=== PATIENT | male | born 1935 | race Caucasian/White ===

== ENCOUNTER 2018-03-17 08:00 | Emergency (ER) | payer BC ==
[~2018-03-17] VITALS: Ht 175.3 cm; Wt 72.6 kg
[2018-03-17] MEDS ORDERED: Zestril40 MG PO (08:28)
[2018-03-17] MEDS ORDERED: TAMS.4ER PO (08:28)
[2018-03-17] MEDS ORDERED: METF500C PO (08:28)
[2018-03-17] MEDS ORDERED: SIMV10 PO (08:28)
[2018-03-17] MEDS ORDERED: VERA240ER PO (08:28)
[2018-03-17] MEDS ORDERED: ALLO300 PO (08:29)
[2018-03-17] MEDS ORDERED: HYDCHL25 PO (08:29)
[2018-03-17 09:10] LABS: Source, Urine Clean Catch
[2018-03-17 09:13] LABS: Hemoglobin 12.6 g/dL (13.5-17.5); Mean Corpuscular HGB 30.4 pg (26.0-34.0); Mean Corpuscular HGB Conc 33.2 g/dL (31.5-36.5); Mean Corpuscular Volume 92 fL (80-100); Mean Platelet Volume 9.7 fL (9.1-12.4); Platelet Count 341 K/mm3 (150-400); RDW Coefficient Variation 12.5 % (11.7-14.2); Red Blood Cell Count 4.14 M/mm3 (4.30-5.90); White Blood Cell Count 22.75 K/mm3 (4.00-11.30)
[2018-03-17 09:22] LABS: Bilirubin, Urine Neg (Neg); Blood, Urine 5+ (Neg); Glucose Qualitative, Urine Neg (Neg); Ketones, Urine Neg (Neg); Leukocyte Esterase, Urine 3+ (Neg); Nitrite, Urine Neg (Neg); Protein, Urine 3+ (Neg); Urobilinogen, Urine NORM (Normal)
[2018-03-17 09:27] LABS: Color, Urine Yellow (P-Yellow)
[2018-03-17 09:28] LABS: Appearance, Urine Turbid (Clear)
[2018-03-17 09:29] LABS: Red Blood Cells, Urine TNTC /hpf (0-2); White Blood Cells, Urine TNTC /hpf (0-5)
[2018-03-17 09:33] LABS: Bacteria Mod /hpf; Squamous Epithelial Cells Not Seen /hpf (Few); Transitional Epithelial Cells Rare /hpf (0-Rare)
[2018-03-17 09:34] LABS: Alanine Aminotransfer (ALT/SGP 49 U/L (12-78); Albumin, Blood 3.1 g/dL (3.4-5.0); Albumin/Globulin Ratio 0.6 (0.8-1.8); Alk Phos 29 U/L (50-136); Anion Gap 9 mmol/L (6-16); Aspartate Aminotrans (AST/SGOT 25 U/L (12-37); Bilirubin, Total 0.5 mg/dL (0.1-1.0); Blood Urea Nitrogen 28 mg/dL (8-24); Bun/Creatinine Ratio 29.9 (12.0-20.0); CO2, Blood 25 mmol/L (21-32); Calcium, Blood 9.7 mg/dL (8.5-10.1); Chloride, Blood 101 mmol/L (98-108); Creatinine, Blood 0.94 mg/dL (0.60-1.20); Globulin, Blood 4.8 g/dL (2.2-4.0); Glomerular Filtration Rate >60 (60-); Glucose, Blood 173 mg/dL (70-99); Potassium, Blood 5.1 mmol/L (3.5-5.5); Sodium, Blood 135 mmol/L (136-145); Total Protein, Blood 7.9 g/dL (6.4-8.2)
[2018-03-17] MEDS ORDERED: Cipro500 MG PO (09:37)
[2018-03-17 10:04] LABS: BASOPHILS PERCENT MAN 0 % (0-2); EOSINOPHILS ABSOLUTE MAN 0.45 K/mm3 (0.00-0.68); EOSINOPHILS PERCENT MAN 2 % (0-6); LYMPHOCYTES % ATYPICAL MANUAL 15 % (0-0); LYMPHOCYTES ABSOLUTE MAN 13.42 K/mm3 (0.84-5.20); LYMPHOCYTES PERCENT MAN 44 % (21-46); MONOCYTES ABSOLUTE MAN 1.59 K/mm3 (0.16-1.47); MONOCYTES PERCENT MAN 7 % (4-13); NEUTROPHILS ABSOLUTE MAN 7.28 K/mm3 (1.96-9.15); SEG NEUTROPHILS PERCENT MAN 32 % (41-73); TOTAL CELLS COUNTED 100
== END 2018-03-17 09:58 | disposition home or self-care (01) ==
LOC: ER 08:00
PROVIDERS: Physician Assistant
DX: N39.0 Urinary tract infection, site not specified (principal)
CPT/HCPCS: 36415; 80053; 81001; 85025; 87086; 99283; G0103

== ENCOUNTER 2018-12-21 08:30 | Day surgery (SDC) | payer BC ==
[~2018-12-21] VITALS: Ht 175.3 cm; Wt 72.0 kg
[~2018-12-21 08:30] MED LIST: ALLERGY EYE DROP5 ML; ALLO300 PO; AMLO10 PO; Cipro500 MG PO; Coq-10100 MG PO; FINA5 PO; FISH OIL 1,0001 EAC1 PO; FLONASE ALLERG9.9 ML; HYDCHL25 PO; METF500C PO; SIMV10 PO; TAMS.4ER PO; VERA120ERB PO; VERA240ER PO; Zestril40 MG PO
== END 2018-12-21 11:40 | disposition home or self-care (01) ==
LOC: ORSCSDS 08:30
PROVIDERS: Ophthalmology
PROC: 08RJ3JZ Replacement of Right Lens with Synthetic Substitute, Percutaneous Approach (ICD-10-PCS; principal; 2018-12-21 10:00)
DX: H25.11 Age-related nuclear cataract, right eye (principal); H21.81 Floppy iris syndrome; I10 Essential (primary) hypertension; E11.9 Type 2 diabetes mellitus without complications; K21.9 Gastro-esophageal reflux disease without esophagitis; Z79.899 Other long term (current) drug therapy
CPT/HCPCS: 82947; J0360; J2250; J3010; J3301; J7120; V2632

== ENCOUNTER → 2019-08-22 | Outpatient (CLI) | payer BC ==
[~2019-08-22] MED LIST changes: +ACET325 PO; +ASCO500 PO; +Betamethasone D60 ML TOP; +FERSU300 PO; +MELA3 PO; +ONDA4ODT MM; +TRIDERM28.4 GM TOP; +Verapamil HCl240 M1 PO
[2019-08-22 11:42] LABS: Source, Urine Catheter
[2019-08-22 12:50] LABS: Bilirubin, Urine Neg (Neg); Blood, Urine 1+ (Neg); Glucose Qualitative, Urine Neg (Neg); Ketones, Urine Neg (Neg); Leukocyte Esterase, Urine 3+ (Neg); Nitrite, Urine Neg (Neg); Protein, Urine 1+ (Neg); Specific Gravity, Urine 1.015 (1.003-1.022); Urobilinogen, Urine NORM (Normal)
[2019-08-22 13:05] LABS: Color, Urine Yellow (P-Yellow)
[2019-08-22 13:06] LABS: Appearance, Urine Hazy (Clear)
[2019-08-22 13:08] LABS: Bacteria Many /hpf; Squamous Epithelial Cells Not Seen /hpf (Few); White Blood Cells, Urine 50-100 /hpf (0-5)
== END | disposition home or self-care (01) ==
LOC: LAB 11:41 → LAB SHORT 11:41
PROVIDERS: Internal Medicine Hematology & Oncology
DX: C91.10 Chronic lymphocytic leukemia of B-cell type not having achieved remission (principal)
CPT/HCPCS: 81001; 87086

== ENCOUNTER 2019-09-05 12:41 | Inpatient (IN) | payer MEDICARE, BC ==
[~2019-09-05] VITALS: Ht 175.3 cm; Wt 58.3 kg
[~2019-09-05 12:41] MED LIST changes: -ACET325 PO; -ASCO500 PO; -Betamethasone D60 ML TOP; -FERSU300 PO; -MELA3 PO; -ONDA4ODT MM; -TRIDERM28.4 GM TOP; -Verapamil HCl240 M1 PO
[2019-09-05 13:20] LABS: Calcium, Ionized (POC) 1.25 mmol/L (1.10-1.46); Chloride (POC) 107 mmol/L (98-108); Creatinine (POC) 4.3 mg/dL (0.8-1.3); Glucose (ISTAT POC) 120 mg/dL (70-99); Hemoglobin (POC) 9.9 g/dL (13.5-17.5); Potassium (POC) 6.9 mmol/L (3.5-5.5); Sodium (POC) 127 mmol/L (135-148); Total CO2 (POC) 14 mmol/L (21-32)
[2019-09-05 13:31] LABS: BASOPHILS ABSOLUTE AUTO 0.07 K/mm3 (0.00-0.23); BASOPHILS PERCENT AUTO 0 % (0-2); EOSINOPHILS ABSOLUTE AUTO 0.18 K/mm3 (0.00-0.68); EOSINOPHILS PERCENT AUTO 1 % (0-6); Hematocrit 29.2 % (37.0-53.0); Hemoglobin 9.1 g/dL (13.5-17.5); Mean Corpuscular HGB 28.1 pg (26.0-34.0); Mean Corpuscular HGB Conc 31.2 g/dL (31.5-36.5); Mean Corpuscular Volume 90 fL (80-100); Mean Platelet Volume 10.6 fL (9.1-12.4); Platelet Count 291 K/mm3 (150-400); Red Blood Cell Count 3.24 M/mm3 (4.30-5.90); White Blood Cell Count 25.53 K/mm3 (4.00-11.30)
[2019-09-05 13:33] LABS: IMMATURE GRAN PERCENT AUTO 0 % (0-1); LYMPHOCYTES ABSOLUTE AUTO 15.59 K/mm3 (0.84-5.20); LYMPHOCYTES PERCENT AUTO 61 % (21-46); MONOCYTES ABSOLUTE AUTO 2.05 K/mm3 (0.16-1.47); MONOCYTES PERCENT AUTO 8 % (4-13); NEUTROPHILS ABSOLUTE AUTO 7.54 K/mm3 (1.96-9.15); NEUTROPHILS PERCENT AUTO 30 % (41-73)
[2019-09-05 13:51] LABS: Troponin I <0.015 ng/mL (0.000-0.040)
[2019-09-05 13:54] LABS: Alanine Aminotransfer (ALT/SGP 20 U/L (12-78); Albumin/Globulin Ratio 0.8 (0.8-1.8); Alk Phos 34 U/L (50-136); Anion Gap 9 mmol/L (6-16); Aspartate Aminotrans (AST/SGOT 10 U/L (12-37); Bilirubin, Total 0.2 mg/dL (0.1-1.0); Blood Urea Nitrogen 102 mg/dL (8-24); Bun/Creatinine Ratio 28.8 (12.0-20.0); CO2, Blood 14 mmol/L (21-32); Calcium, Blood 8.7 mg/dL (8.5-10.1); Chloride, Blood 106 mmol/L (98-108); Creatinine, Blood 3.54 mg/dL (0.60-1.20); Glomerular Filtration Rate 18 (60-); Glucose, Blood 121 mg/dL (70-99); Potassium, Blood 6.8 mmol/L (3.5-5.5); Sodium, Blood 129 mmol/L (136-145)
[2019-09-05 13:56] LABS: BAND PERCENT MAN 1 % (0-8); BASOPHILS PERCENT MAN 0 % (0-2); EOSINOPHILS PERCENT MAN 0 % (0-6); LYMPHOCYTES ABSOLUTE MAN 16.08 K/mm3 (0.84-5.20); LYMPHOCYTES PERCENT MAN 63 % (21-46); MONOCYTES PERCENT MAN 0 % (4-13); NEUTROPHILS ABSOLUTE MAN 9.44 K/mm3 (1.96-9.15); SEG NEUTROPHILS PERCENT MAN 36 % (41-73); TOTAL CELLS COUNTED 100
[2019-09-05] MEDS ORDERED: Verapamil HCl240 M1 PO (15:03)
[2019-09-05] MEDS ORDERED: HYDCHL25 PO (15:03)
[2019-09-05] MEDS ORDERED: Betamethasone D60 ML TOP (15:04)
[2019-09-05] MEDS ORDERED: TRIDERM28.4 GM TOP (15:05)
[2019-09-05 16:06] LABS: Source, Urine Catheter
[2019-09-05 16:11] LABS: Bilirubin, Urine Neg (Neg); Blood, Urine 2+ (Neg); Glucose Qualitative, Urine Neg (Neg); Ketones, Urine Neg (Neg); Leukocyte Esterase, Urine Neg (Neg); Nitrite, Urine Neg (Neg); Protein, Urine Neg (Neg); Urobilinogen, Urine NORM (Normal)
[2019-09-05 16:18] LABS: Appearance, Urine Clear (Clear); Color, Urine Yellow (P-Yellow)
[2019-09-05 16:19] LABS: Bacteria Few /hpf; Squamous Epithelial Cells Not Seen /hpf (Few); White Blood Cells, Urine 0-2 /hpf (0-5)
[2019-09-05 17:11] LABS: Magnesium, Blood 1.5 mg/dL (1.6-2.4); Phosphorus, Blood 4.2 mg/dL (2.5-4.9); Uric Acid, Blood 4.9 mg/dL (3.5-7.2)
[2019-09-05 17:25] LABS: Calcium, Ionized (POC) 1.35 mmol/L (1.10-1.46); Chloride (POC) 110 mmol/L (98-108); Creatinine (POC) 3.7 mg/dL (0.8-1.3); Glucose (ISTAT POC) 70 mg/dL (70-99); Hemoglobin (POC) 7.5 g/dL (13.5-17.5); Sodium (POC) 131 mmol/L (135-148); Total CO2 (POC) 15 mmol/L (21-32)
--- NOTE | 2019-09-05 18:35 | NUR ---
PT TO ROOM FROM ER AT 181. REPORT FROM SATNAM RAE. PT A&OX 4. ANSWERS QUESTIONS APPROPRIATELY. PT STATES HE WAS TOLD TO COME TO ER AFTER ABNORMAL LABS. PT DENIES PAIN. 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 DENIES HX OF KIDNEY DISEASE. PT c HX OF CLL, DENIES PREVIOUS TREATMENTS. REPORTS 30# WEIGHT LOSS, FATIGUE X 1 MONTH. RECENTLY TREATED FOR PNEUMONIA s IMPROVEMENT IN SYMPTOMS. PT SELF-CATHS D/T PROSTATE ISSUES. ARRIVES c INDWELLING NAJERA, PATENT, DRAINING TO GRAVITY. 18G IV TO LEFT AC, INFUSING BICARB DRIP AT 100 ML/HR. PT AMBULATORY, STAND BY ASSIST. CALL LIGHT IN REACH. WILL CONTINUE TO MONITOR.
--- NOTE | 2019-09-05 19:00 | NUR ---
ASSUMED CARE ASSUMED CARE OF PATIENT. AWAKE AND ALERT. ORIENTED AND COOPERATIVE. REPOSITIONS SELF IN BED WITHOUT DIFFICULTY. DENIES C/O PAIN OR DISCOMFORT. MONITOR SHOWS ST, RATE 100-105. BP STABLE. RA SATS 98%. RESPIRATIONS EVEN AND UNLABORED. NAJERA PATENT AND DRAINING CLEAR YELLOW URINE. BICARB GTT INFUSING @ 100CC/HR PER ORDER. SEE SHIFT ASSESSMENT FOR FULL ASSESSMENT.
[2019-09-05 19:26] LABS: Bun/Creatinine Ratio 31.8 (12.0-20.0); Calcium, Blood 9.1 mg/dL (8.5-10.1); Creatinine, Blood 3.11 mg/dL (0.60-1.20)
[2019-09-05 20:12] LABS: Anion Gap 11 mmol/L (6-16); Blood Urea Nitrogen 98 mg/dL (8-24); Bun/Creatinine Ratio 27.5 (12.0-20.0); CO2, Blood 12 mmol/L (21-32); Calcium, Blood 8.8 mg/dL (8.5-10.1); Chloride, Blood 106 mmol/L (98-108); Creatinine, Blood 3.57 mg/dL (0.60-1.20); Glomerular Filtration Rate 17 (60-); Sodium, Blood 129 mmol/L (136-145)
[2019-09-06 02:37] LABS: Potassium, Blood 6.1 mmol/L (3.5-5.5)
[2019-09-06 02:38] LABS: Glucose, Blood 73 mg/dL (70-99)
[2019-09-06 04:15] LABS: BASOPHILS ABSOLUTE AUTO 0.05 K/mm3 (0.00-0.23); BASOPHILS PERCENT AUTO 0 % (0-2); EOSINOPHILS PERCENT AUTO 1 % (0-6); Hematocrit 27.4 % (37.0-53.0); Hemoglobin 8.9 g/dL (13.5-17.5); Mean Corpuscular HGB 27.1 pg (26.0-34.0); Mean Corpuscular HGB Conc 32.5 g/dL (31.5-36.5); Mean Platelet Volume 10.2 fL (9.1-12.4); Platelet Count 240 K/mm3 (150-400); RDW Coefficient Variation 16.4 % (11.7-14.2); RDW Standard Deviation 49.6 fL (35.1-46.3); Red Blood Cell Count 3.28 M/mm3 (4.30-5.90); White Blood Cell Count 20.21 K/mm3 (4.00-11.30)
[2019-09-06 04:16] LABS: IMMATURE GRAN ABSOLUTE AUTO 0.03 K/mm3 (0.00-0.10); IMMATURE GRAN PERCENT AUTO 0 % (0-1); LYMPHOCYTES ABSOLUTE AUTO 15.95 K/mm3 (0.84-5.20); LYMPHOCYTES PERCENT AUTO 79 % (21-46); MONOCYTES ABSOLUTE AUTO 0.86 K/mm3 (0.16-1.47); MONOCYTES PERCENT AUTO 4 % (4-13); Mean Corpuscular Volume 84 fL (80-100); NEUTROPHILS ABSOLUTE AUTO 3.12 K/mm3 (1.96-9.15); NEUTROPHILS PERCENT AUTO 16 % (41-73)
[2019-09-06 04:29] LABS: Alanine Aminotransfer (ALT/SGP 16 U/L (12-78); Albumin, Blood 2.7 g/dL (3.4-5.0); Albumin/Globulin Ratio 0.8 (0.8-1.8); Alk Phos 32 U/L (50-136); Anion Gap 6 mmol/L (6-16); Aspartate Aminotrans (AST/SGOT 7 U/L (12-37); Bilirubin, Direct <0.1 mg/dL (0.0-0.3); Bilirubin, Total 0.2 mg/dL (0.1-1.0); Blood Urea Nitrogen 75 mg/dL (8-24); Bun/Creatinine Ratio 36.2 (12.0-20.0); CO2, Blood 26 mmol/L (21-32); CPK Creatine Kinase 33 U/L (39-308); Calcium, Blood 9.2 mg/dL (8.5-10.1); Chloride, Blood 109 mmol/L (98-108); Creatinine, Blood 2.07 mg/dL (0.60-1.20); Globulin, Blood 3.5 g/dL (2.2-4.0); Glomerular Filtration Rate 33 (60-); Glucose, Blood 123 mg/dL (70-99); Magnesium, Blood 1.3 mg/dL (1.6-2.4); Phosphorus, Blood 3.3 mg/dL (2.5-4.9); Potassium, Blood 5.4 mmol/L (3.5-5.5); Total Protein, Blood 6.2 g/dL (6.4-8.2); Uric Acid, Blood 4.3 mg/dL (3.5-7.2)
[2019-09-06 04:31] LABS: Bilirubin, Indirect Unable to Calculate mg/dL (0.1-0.7)
[2019-09-06 04:32] LABS: International Normalized Ratio 1.07; Prothrombin Time Results 11.3 Sec (9.7-11.5)
[2019-09-06 04:37] LABS: Sodium, Blood 141 mmol/L (136-145)
--- NOTE | 2019-09-06 05:54 | NUR ---
SHIFT SUMMARY NO ACUTE CHANGES DURING NOC. SLEPT INTERMITTENTLY. REPOSITIONS SELF IN BED. DENIES C/O PAIN OR DISCOMFORT. BP STABLE T/O NOC. MONITOR SHOWS SR-ST, RATE 90-100s. AFEBRILE. REMAINS ON RA WITH O2 SATS 98%. RESPIRATIONS EVEN AND UNLABORED. BICARB GTT INFUSING @ 100CC/HR PER ORDER. NAJERA PATENT AND DRAINING LARGE AMOUNTS OF CLEAR YELLOW URINE. WILL REPORT TO DAY SHIFT RN WHEN AVAILABLE.
--- NOTE | 2019-09-06 07:30 | NUR ---
BEGINNING OF SHIFT Assumed care at 0700. Bedside report received from Ashleigh RAE. Pt on room air. SpO2 90% or greater. Sinus tachycardia per monitor. Pt alert and oriented. No family in room at this time. Jonas catheter in place for strict measurement of fluid intake and output. IV fluids changed per orders. Bed in lowest position. Call light in reach. Pt denies need at this time.
--- NOTE | 2019-09-06 15:31 | NUR ---
DR GOYAL IN TO SEE PT Plan of care discussed. Discussed labs and vitals. Pt okay to be medical floor status with telemetry per Dr Goyal.
--- NOTE | 2019-09-06 16:33 | NUR ---
Spiritual Care inital note: I met with Tone and his marco , Leslie at bedside. 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 Both report a strong medical knowledge. Tone tells me that this is his first time to be hospitalized. He has taken good care of himself and is proud of this accomplishment. Both fully expect him to recover completely. Tone sees no need to be anything other than Full Code. Neither are particularly latter-day, but Leslie became tearful during my prayer. She thanked me for this, as apparently she hadn't cried for a while. Clearly she will benefit from continued gentle domestic violence counselor as I suspect there is a deep well of fear just below the surface. Regardless, neither wanted to engage in deep exploration of conerns/fears. [employer] will remain available.
--- NOTE | 2019-09-06 18:29 | NUR ---
SUMMARY No acute changes t/o shift. Pt medical floor status with telemetry. Pt remains alert and oriented. Pt remains on room air. Sinus rhtyhm per monitor. Pt calls appropriately for mobilization OOB. Standby assist. Bed in lowest position. Call light in reach. Will continue to closely monitor until care handoff and bedside report with oncoming RN.
--- NOTE | 2019-09-06 20:00 | NUR ---
ASSUMED CARE OF PT AT 1915. REPORT RECEIVED. PT PRESENTS IN BED. ALERT AND ORIENTED. PLEASANT AND COOPERATIVE WITH CARE AND ASSESSMENT. PT STATES THAT HE IS FEELING MUCH BETTER TODAY. WILL REVIEW CHART AND PLAN OF CARE FOR THIS PT.
--- NOTE | 2019-09-07 | NUR ---
PT HAS BEEN UP TO TOILET TO ATTEMPT BM THIS EVENING. WAS UNSUCESSFUL THOUGH WAS ABLE TO PASS FLATUS. PT DENIES ALL COMPLAINTS. ABLE TO MOVE ABOUT BE ON HIS OWN.
[2019-09-07 03:26] LABS: Hemoglobin 8.3 g/dL (13.5-17.5)
[2019-09-07 03:45] LABS: Albumin, Blood 2.4 g/dL (3.4-5.0); Anion Gap 4 mmol/L (6-16); Blood Urea Nitrogen 46 mg/dL (8-24); Bun/Creatinine Ratio 31.5 (12.0-20.0); CO2, Blood 27 mmol/L (21-32); Calcium, Blood 8.3 mg/dL (8.5-10.1); Chloride, Blood 109 mmol/L (98-108); Creatinine, Blood 1.46 mg/dL (0.60-1.20); Glomerular Filtration Rate 49 (60-); Glucose, Blood 89 mg/dL (70-99); Magnesium, Blood 1.6 mg/dL (1.6-2.4); Phosphorus, Blood 2.8 mg/dL (2.5-4.9); Sodium, Blood 140 mmol/L (136-145)
--- NOTE | 2019-09-07 06:04 | NUR ---
REPORT CALLED FOR TRANSFER TO ROOM 337. ALLOWED FOR QUESTIONS. PT ACCEPTING OF TRANSFER. HAS STATED THAT HE FEELS THAT HE IS REGAINING HIS APPETITE. PT LEAVES FOR ROOM 337 IN STABLE CONDITION.
--- NOTE | 2019-09-07 06:26 | NUR ---
0600 PT RECEIVED FROM ICU INTO ROOM 337 PER BED.
--- NOTE | 2019-09-07 07:41 | NUR ---
IVF IVF RATE CHANGED FROM 75/HR TO 50/HR
--- NOTE | 2019-09-07 18:38 | NUR ---
PT IS FEELING BETTER TODAY AND SAYS HIS APPETITE IS RETURNING. NO ACUTE CHANGES NOTED THIS SHIFT. POSSIBLE DISCHARGE TOMORROW. WILL CONTINUE TO MONITOR AND REPORT TO ONCOMING RN
--- NOTE | 2019-09-08 04:57 | NUR ---
SHIFT SUMMARY: 83 Y/O MALE RESTED COMFORTABLY ALL SHIFT, DENIES PAIN OR NAUSEA, NAJERA DRAINING CLEAR YELLOW FLUID, PT HOPING FOR POSSIBLE DISCHARGE HOME TODAY, TELEMETRY REFLECTS NSR WITH HEART RATE 84, BED LOW POSITION WITH CALL LIGHT AT SIDE.
[2019-09-08 05:40] LABS: Hematocrit 25.9 % (37.0-53.0); Hemoglobin 8.1 g/dL (13.5-17.5)
[2019-09-08 06:00] LABS: Albumin, Blood 2.4 g/dL (3.4-5.0); Anion Gap 6 mmol/L (6-16); Blood Urea Nitrogen 29 mg/dL (8-24); Bun/Creatinine Ratio 25.7 (12.0-20.0); CO2, Blood 26 mmol/L (21-32); Calcium, Blood 8.2 mg/dL (8.5-10.1); Chloride, Blood 109 mmol/L (98-108); Creatinine, Blood 1.13 mg/dL (0.60-1.20); Glomerular Filtration Rate >60 (60-); Glucose, Blood 90 mg/dL (70-99); Magnesium, Blood 1.3 mg/dL (1.6-2.4); Phosphorus, Blood 2.6 mg/dL (2.5-4.9); Potassium, Blood 4.6 mmol/L (3.5-5.5); Sodium, Blood 141 mmol/L (136-145)
[2019-09-08] MEDS ORDERED: ONDA4ODT MM (10:18)
[2019-09-08] MEDS ORDERED: MELA3 PO (10:18)
[2019-09-08] MEDS ORDERED: ACET325 PO (10:18)
[2019-09-08] MEDS ORDERED: ASCO500 PO (11:00)
[2019-09-08] MEDS ORDERED: FERSU300 PO (11:00)
--- NOTE | 2019-09-08 13:17 | NUR ---
DISCHARGE DISCHARGE INSTRUCTIONS, MEDCATIONS AND FOLLOW UP APPOINTMENTS REVIEWED WITH PT AND SPOUSE. QUESTIONS/CONCERNS ANSWERED. BOTH VERBALLY INDICATED UNDERSTANDING OF ALL INSTRUCTIONS RECEIVED. TELE REMOVED AND RETURNED TO PCU.
== END 2019-09-08 12:40 | disposition home health service (06) | DRG 683 ==
LOC: ER 12:41 → PCU 15:13 → ICUW 15:13 → MEDS 09-07 06:02
PROVIDERS: Emergency Medicine; Internal Medicine Nephrology; Nurse Practitioner Acute Care; ADMIT Family Medicine
DX: N17.9 Acute kidney failure, unspecified (principal); C82.80 Other types of follicular lymphoma, unspecified site; E87.2 Acidosis; E87.1 Hypo-osmolality and hyponatremia; N18.9 Chronic kidney disease, unspecified; I12.9 Hypertensive chronic kidney disease with stage 1 through stage 4 chronic kidney disease, or unspecified chronic kidney disease; E11.22 Type 2 diabetes mellitus with diabetic chronic kidney disease; M10.9 Gout, unspecified; E87.5 Hyperkalemia; N40.0 Benign prostatic hyperplasia without lower urinary tract symptoms; D64.9 Anemia, unspecified; E86.9 Volume depletion, unspecified; Z87.891 Personal history of nicotine dependence
CPT/HCPCS: 36415; 51702; 51798; 71046; 76770; 80047; 80048; 80053; 80061; 80069; 81001; 82248; 82550; 82947; 83036; 83735; 84100; 84132; 84300; 84484; 84550; 85014; 85018; 85025; 85610; 93005; 93010; 96365-59; 96367-59; 96375-59; 96376-59; 97110; 97116; 97162; 97530; 99285-25; J0610; J0881; J1644; J1815; J3475; J7030; J7070; J7799

== ENCOUNTER 2019-11-13 08:16 | Day surgery (SDC) | payer BC ==
[~2019-11-13 08:16] MED LIST changes: +ACET325 PO; +ASCO500 PO; +Betamethasone D60 ML TOP; +FERSU300 PO; +MELA3 PO; +ONDA4ODT MM; +TRIDERM28.4 GM TOP; +Verapamil HCl240 M1 PO
--- NOTE | 2019-11-13 12:05 | NUR ---
RADIOLOGY CALLED AND REPORTS THEY DISCHARGED THE PATINET POST F/U CHEST XRAY. DISCHARGE INSTRUCTIONS REVEIWED WITH BUD AGEE TO THEIR F/U XRAY. SERJIO REMAINS W/O DIFFICULTY T/O STEP DOWN RECOVERY CARE.
[2019-11-27 19:11] LABS: Performing Lab SYMBIODX; Result SEE PATHOTH RESULTS; Test Name TISSUE BLOCK
== END 2019-11-13 22:37 | disposition home or self-care (01) ==
LOC: CT 08:16
PROVIDERS: Internal Medicine Hematology & Oncology
DX: C34.12 Malignant neoplasm of upper lobe, left bronchus or lung (principal); C91.10 Chronic lymphocytic leukemia of B-cell type not having achieved remission; C61 Malignant neoplasm of prostate; E11.9 Type 2 diabetes mellitus without complications; E78.5 Hyperlipidemia, unspecified; M10.9 Gout, unspecified; I10 Essential (primary) hypertension; Z87.891 Personal history of nicotine dependence; Z79.51 Long term (current) use of inhaled steroids; Z79.84 Long term (current) use of oral hypoglycemic drugs; Z79.899 Other long term (current) drug therapy; Z91.048 Other nonmedicinal substance allergy status
CPT/HCPCS: 32405; 71045; 77012; 88305; 88341; 88342; 88360

== ENCOUNTER 2020-04-09 09:20 | Day surgery (SDC) | payer BC | END 2020-04-09 22:42 | disposition home or self-care (01) | LOC: CT 09:20 | DX: C79.51 Secondary malignant neoplasm of bone (principal); C34.12 Malignant neoplasm of upper lobe, left bronchus or lung; C91.10 Chronic lymphocytic leukemia of B-cell type not having achieved remission; E11.9 Type 2 diabetes mellitus without complications; E78.5 Hyperlipidemia, unspecified; I10 Essential (primary) hypertension; M10.9 Gout, unspecified; Z87.891 Personal history of nicotine dependence; Z79.899 Other long term (current) drug therapy; Z79.84 Long term (current) use of oral hypoglycemic drugs | CPT/HCPCS: 20225; 77012; 88305; 88341; 88342 ==

== ENCOUNTER 2020-05-14 05:37 | Inpatient (IN) | payer MEDICARE, BC ==
[~2020-05-14] VITALS: Ht 175.3 cm; Wt 64.0 kg
[2020-05-14 06:40] LABS: Calcium, Ionized (POC) 1.07 mmol/L (1.10-1.46); Chloride (POC) 95 mmol/L (98-108); Creatinine (POC) 1.4 mg/dL (0.8-1.3); Glucose (ISTAT POC) 317 mg/dL (70-99); Hemoglobin (POC) 8.5 g/dL (13.5-17.5); Potassium (POC) 6.2 mmol/L (3.5-5.5); Sodium (POC) 119 mmol/L (135-148); Total CO2 (POC) 14 mmol/L (21-32)
[2020-05-14 06:49] LABS: Mean Corpuscular HGB 29.6 pg (26.0-34.0); Mean Corpuscular HGB Conc 30.8 g/dL (31.5-36.5); Mean Corpuscular Volume 96 fL (80-100); Mean Platelet Volume 9.5 fL (9.1-12.4); NRBC ABSOLUTE 0.12 K/mm3 (0.00-0.02); NRBC Auto 0.3 /100 WBC (0.0-0.2); Platelet Count 468 K/mm3 (150-400); RDW Coefficient Variation 14.2 % (11.7-14.2); RDW Standard Deviation 49.4 fL (35.1-46.3); White Blood Cell Count 45.99 K/mm3 (4.00-11.30)
[2020-05-14 07:00] LABS: PCO2 Arterial 54.7 mmHg (35-45); PO2 Arterial 83.4 mmHg (80-100); pH Blood Arterial 7.01 (7.35-7.45)
[2020-05-14 07:13] LABS: Troponin I <0.015 ng/mL (0.000-0.040)
[2020-05-14 07:22] LABS: Alanine Aminotransfer (ALT/SGP 245 U/L (12-78); Albumin, Blood 1.7 g/dL (3.4-5.0); Albumin/Globulin Ratio 0.5 (0.8-1.8); Alk Phos 65 U/L (50-136); Anion Gap 18 mmol/L (6-16); Aspartate Aminotrans (AST/SGOT 307 U/L (12-37); BAND PERCENT MAN 2 % (0-8); BASOPHILS ABSOLUTE MAN 0.45 K/mm3 (0.00-0.23); BASOPHILS PERCENT MAN 1 % (0-2); Bilirubin, Total 0.3 mg/dL (0.1-1.0); Blood Urea Nitrogen 33 mg/dL (8-24); Bun/Creatinine Ratio 26.2 (12.0-20.0); CO2, Blood 12 mmol/L (21-32); Calcium, Blood 7.5 mg/dL (8.5-10.1); Chloride, Blood 94 mmol/L (98-108); Creatinine, Blood 1.26 mg/dL (0.60-1.20); EOSINOPHILS PERCENT MAN 0 % (0-6); Globulin, Blood 3.7 g/dL (2.2-4.0); Glomerular Filtration Rate 58 (60-); Glucose, Blood 316 mg/dL (70-99); LYMPHOCYTES ABSOLUTE MAN 23.91 K/mm3 (0.84-5.20); LYMPHOCYTES PERCENT MAN 52 % (21-46); METAMYELOCYTE ABSOLUTE MAN 1.37 K/mm3 (0.00-0.00); METAMYELOCYTE PERCENT MAN 3 % (0-0); MONOCYTES ABSOLUTE MAN 0.91 K/mm3 (0.16-1.47); MONOCYTES PERCENT MAN 2 % (4-13); MYELOCYTE ABSOLUTE MAN 0.91 K/mm3 (0.00-0.00); MYELOCYTE PERCENT MAN 2 % (0-0); NEUTROPHILS ABSOLUTE MAN 18.39 K/mm3 (1.96-9.15); Potassium, Blood 6.3 mmol/L (3.5-5.5); SEG NEUTROPHILS PERCENT MAN 38 % (41-73); Sodium, Blood 124 mmol/L (136-145); TOTAL CELLS COUNTED 100; Total Protein, Blood 5.4 g/dL (6.4-8.2)
--- NOTE | 2020-05-14 09:31 | NUR ---
ADMIT NOTE- PT ADMITTED TO ICU FROM ER ON [facility]. UNRESPONSIVE, NO RESPONSE TO VERBAL STIMULUS OR PAINFUL STIMULUS. NO MOVEMENT, NO COUGH, NO GAG. PUPILS UNEQUAL, RIGHT MISSHAPEN, REACTIVE. ORALLY INTUBATED, TOLERATING VENT, LUNGS WITH INSPIRATORY SQUEAK, DIMINISHED RIGHT BASE. APICAL IRREGULAR, RHYTHM SINUS WITH JUNCTIONAL BEATS, QUESTION P WAVES. SEE STRIP. NOW CHANGED TO JUNCTIONAL RHYTHM AT 62 BPM. SBP 90'S WITH LEVOPHED AT 22 MCG/MIN AND EPINEPHRINE DECREASED FROM 4 TO 2 MCG/MIN VIA LEFT FEMORAL CENTRAL LINE. LABS DRAWN. UO VIA NAJERA, URINE CLEAR YELLOW. HERE-UPDATED. FEET PALE, MOTTLED. PULSES PRESENT.
--- NOTE | 2020-05-14 10:05 | NUR ---
LABS DRAWN, HYPOTENSIVE IF MEDS HELD JUST BRIEFLY FOR LAB DRAW FROM CENTRAL LINE. BEDSIDE ECHO BEING DONE
[2020-05-14 10:39] LABS: Source, Urine Catheter
[2020-05-14 10:44] LABS: Albumin, Blood 1.4 g/dL (3.4-5.0); Anion Gap 16 mmol/L (6-16); Blood Urea Nitrogen 35 mg/dL (8-24); CO2, Blood 13 mmol/L (21-32); Calcium, Blood 7.9 mg/dL (8.5-10.1); Chloride, Blood 95 mmol/L (98-108); Glomerular Filtration Rate 51 (60-); Glucose, Blood 383 mg/dL (70-99); Phosphorus, Blood 6.7 mg/dL (2.5-4.9); Potassium, Blood 5.3 mmol/L (3.5-5.5); Sodium, Blood 124 mmol/L (136-145)
[2020-05-14 11:03] LABS: Appearance, Urine Hazy (Clear); Bilirubin, Urine Neg (Neg); Blood, Urine Neg (Neg); Color, Urine Yellow (P-Yellow); Glucose Qualitative, Urine Neg (Neg); Ketones, Urine Neg (Neg); Leukocyte Esterase, Urine 1+ (Neg); Nitrite, Urine Neg (Neg); Protein, Urine Trace (Neg); Specific Gravity, Urine 1.005 (1.003-1.022); Urobilinogen, Urine NORM (Normal)
[2020-05-14 11:04] LABS: Bacteria Few /hpf; Red Blood Cells, Urine Not Seen /hpf (0-2); Squamous Epithelial Cells Few /hpf (Few)
[2020-05-14 11:13] LABS: PCO2 Arterial 55.2 mmHg (35-45); PO2 Arterial 86.6 mmHg (80-100)
[2020-05-14 11:46] LABS: Adenovirus Not Detected (NOT DETECT); Coronavirus 229E Not Detected (NOT DETECT); Coronavirus HKU1 Not Detected (NOT DETECT); Coronavirus NL63 Not Detected (NOT DETECT); Coronavirus OC43 Not Detected (NOT DETECT); Human Metapneumovirus Not Detected (NOT DETECT); Human Rhinovirus/Enterovirus Not Detected (NOT DETECT)
[2020-05-14 11:47] LABS: Bordetella pertussis Not Detected (NOT DETECT); Chlamydophila pneumoniae Not Detected (NOT DETECT); Influenza A/2009-H1 Not Detected (NOT DETECT); Influenza A/H1 Not Detected (NOT DETECT); Influenza A/H3 Not Detected (NOT DETECT); Influenza B Not Detected (NOT DETECT); Mycoplasma pneumoniae Not Detected (NOT DETECT); Parainfluenza Virus 1 Not Detected (NOT DETECT); Parainfluenza Virus 2 Not Detected (NOT DETECT); Parainfluenza Virus 3 Not Detected (NOT DETECT); Parainfluenza Virus 4 Not Detected (NOT DETECT); Respiratory Syncytial Virus Not Detected (NOT DETECT)
--- NOTE | 2020-05-14 13:00 | NUR ---
DR. ALCANTAR HERE-UPDATED WITH VS, UO, LABS. DR. ALCANTAR AT BEDSIDE, DISCUSSED PLAN WITH PT'S . DNR STATUS NOW. ABLE TO TITRATE OFF EPINEPHRINE WITH SBP > 90'S.
[2020-05-14 13:39] LABS: Percent Saturation 43.9 % (20.0-50.0)
[2020-05-14 15:30] LABS: PCO2 Arterial 47.1 mmHg (35-45); PO2 Arterial 97.6 mmHg (80-100)
--- NOTE | 2020-05-14 16:00 | NUR ---
BEDSIDE ULTRASOUND DONE, NAJERA BALLOON IN POSITION. URINE OUTPUT MINIMAL, CONTINUE TO MONTIOR. DR. ALCANTAR HERE-BOLUS ORDERED.
--- NOTE | 2020-05-14 16:19 | NUR ---
NAJERA REPLACED D/T MALPOSITIONING ON CT SCAN WITHOUT DIFFICULTY. 45 CC BLOODY URINE DRAINED. ABG, VS REVIEWED WITH DR. ALCANTAR. FLUID BOLUS STARTED. ALBUMIN INFUSING. BP STABLE WITH LEVOPHED AT 16 MCG/MIN. PT FLUTTERS EYELIDS AT TIMES, SMALL MOVEMENT NONREPORODUCABLE SHOULDERS AND LEFT HAND. WILL MONITOR. LABS DRAWN.
[2020-05-14 16:29] LABS: Albumin, Blood 2.4 g/dL (3.4-5.0); Anion Gap 14 mmol/L (6-16); Blood Urea Nitrogen 34 mg/dL (8-24); Bun/Creatinine Ratio 22.1 (12.0-20.0); CO2, Blood 17 mmol/L (21-32); Calcium, Blood 7.1 mg/dL (8.5-10.1); Chloride, Blood 91 mmol/L (98-108); Creatinine, Blood 1.54 mg/dL (0.60-1.20); Glomerular Filtration Rate 46 (60-); Glucose, Blood 496 mg/dL (70-99); Phosphorus, Blood 5.5 mg/dL (2.5-4.9); Potassium, Blood 5.2 mmol/L (3.5-5.5); Sodium, Blood 122 mmol/L (136-145)
--- NOTE | 2020-05-14 16:45 | NUR ---
LABS REVIEWED WITH DR. ALCANTAR. PT APPEARED TO OPEN EYES TO NAME, SOME MOVEMENT LEFT HAND. BILATERAL WRIST RESTRAINTS ON. EXPLAINED PLAN OF CARE.
--- NOTE | 2020-05-14 17:56 | NUR ---
Initial spiritual care note: Pt was intubated and non-responsive. I met with spouse, Jolene, at bedside. She was tearful and open to my visit. We met when pt was here in January. Jolene spoke about pt's recent cancer dx. "he has tumors on his spine." They were supposed to have appt with oncologist today to go over biopsy findings and POC. Jolene explained in detail how Tone has declined this past month. As a usually active, vital man, she says that losing his functions has been most difficult for him. Jolene's family lives out of state and she does not appear to have much emotional support locally, She does have a dtr local, but "she is bi-polar with advanced Lupus." Jolene admitted to me that Tone would not want to go on living with "the way things were going." I provided theraputic listening and emotional affirmation to good effect. We have an easy rapport. I prayed with her and offered gentle college counselor. Jolene expressed fear, sadness, and hopelessness. I encouraged allowing one of her siblings to come be with her now. Physician arrived and visit concluded. I will continue to provide emotional and spiritual support in coming days.
--- NOTE | 2020-05-14 18:15 | NUR ---
PT'S CALLED-UPDATED. PT ABLE TO OPEN EYES TO NAME, ABLE TO NOD HEAD APPROPRIATELY TO BRIEF QUESTIONS, ABLE TO FOLLOW DIRECTIONS TO MOVE HANDS AND TOES WEAKLY. EXPLAINED PLAN OF CARE. DENIES PAIN. EYES CLOSED, RESPIRATIONS EVEN, UNLABORED WHEN UNDISTURBED. TOLERATING VENT. JUNCTIONAL RHYTHM. LEVOPHED DECREASED TO 10 MCG/MIN AND VASOPRESSIN INFUSING. NS TKO, BICARB INCREASED TO 300 CC/HR. BLOOD SUGAR ELEVATED-UPDATE GIVEN TO DR. ALCANTAR. SCALE CHANGED, KEEP AT Q 6 HOURS. BLOODY URINE-STILL SCANT AMOUNT, OK FOR HEPARIN SQ PER DR. ALCANTAR. LABS IN AM. OGT WITH 25 BROWNISH SLIGHTLY REDDISH DRAINAGE. ABDOMEN SOFT. BOTH ARMS AND LEGS WITH 1+EDEMA. ALBUMIN COMPLETED. WRIST RESTRAINTS ON FOR SAFETY
--- NOTE | 2020-05-14 19:00 | NUR ---
ASSUMED CARE ASSUMED CARE OF PATIENT. REMAINS INTUBATED- AC 18, TV 450, PEEP 7, FIO2 65%. PT OPENS EYES TO VERBAL STIMULI. FOLLOWS SIMPLE COMMANDS. NODS HEAD "YES/NO" APPROPRIATELY. DENIES C/O PAIN. MOVES ALL EXTREMITIES TO COMMAND. BILATERAL SOFT WRIST RESTRAINTS IN PLACE TO PREVENT SELF-EXTUBATION. MONITOR SHOWS ACCELERATED JUNCTIONAL RHYTHM, RATE 60-70s. BP STABLE WITH LEVOPHED AT 10MCG/MIN. VASOPRESSIN INFUSING @ 0.04UNITS/MIN. D5 WITH 150mEq BICARB HCO3 INFUSING AT 300CC/HR PER ORDER. OG TO LIS WITH SMALL AMOUNT BROWN DRAINAGE. NAJERA PATENT, BUT WITH SMALL AMOUNT OF BLOODY URINE NOTED. ALSO NOTED BLOODY DRAINAGE FROM MEATUS. PAS TO BLE. LEFT FEMORAL CENTRAL LINE NOTED. SEE SHIFT ASSESSMENT FOR FULL ASSESSMENT.
--- NOTE | 2020-05-14 19:50 | NUR ---
DECREASED SATS/CALL TO MD O2 SATS LOW TO MID-80s DESPITE INCREASE IN FIO2 TO 70%. SUCTIONED SMALL AMOUNT OF BLOODY SPUTUM. REPOSITIONED PT TO BACK. DR. ALCANTAR NOTIFIED- NEW ORDER RECEIVED TO TITRATE PEEP UP TO 12 IF NEEDED. ALSO NOTIFIED MD OF CONTINUED BLOOD IN URINE AND DECREASED URINE OUTPUT. NO NEW ORDERS IN THAT REGARD.
--- NOTE | 2020-05-14 20:45 | NUR ---
CALL TO MD CALL TO DR. ALCANTAR TO DISCUSS CONTINUED HYPERGLYCEMIA, HYPONATREMIA, AND BICARB GTT WITH D5W. NEW ORDER RECEIVED TO GIVE ONE TIME DOSE OF LASIX 40MG IV.
--- NOTE | 2020-05-15 03:37 | NUR ---
VENT PT WITH ASYNCHRONUS RESPIRATIONS AND BREATH STACKING NOTED. RT AT BEDSIDE- CHANGED TO SPONTANEOUS VENTILATION WITH PS OF 8, FIO2 60% AT THIS TIME. PT SEEMS MORE COMFORTABLE ON SPONTANEOUS VENTILATION.
[2020-05-15 03:53] LABS: BASOPHILS ABSOLUTE AUTO 0.06 K/mm3 (0.00-0.23); BASOPHILS PERCENT AUTO 0 % (0-2); EOSINOPHILS ABSOLUTE AUTO 0.01 K/mm3 (0.00-0.68); EOSINOPHILS PERCENT AUTO 0 % (0-6); Hematocrit 20.6 % (37.0-53.0); Hemoglobin 6.6 g/dL (13.5-17.5); Mean Corpuscular HGB 29.5 pg (26.0-34.0); Mean Platelet Volume 9.8 fL (9.1-12.4); NRBC ABSOLUTE 0.17 K/mm3 (0.00-0.02); NRBC Auto 0.6 /100 WBC (0.0-0.2); Platelet Count 282 K/mm3 (150-400); RDW Coefficient Variation 13.9 % (11.7-14.2); RDW Standard Deviation 46.2 fL (35.1-46.3); Red Blood Cell Count 2.24 M/mm3 (4.30-5.90); White Blood Cell Count 29.11 K/mm3 (4.00-11.30)
[2020-05-15 04:19] LABS: IMMATURE GRAN ABSOLUTE AUTO 1.01 K/mm3 (0.00-0.10); IMMATURE GRAN PERCENT AUTO 4 % (0-1); LYMPHOCYTES ABSOLUTE AUTO 8.29 K/mm3 (0.84-5.20); LYMPHOCYTES PERCENT AUTO 29 % (21-46); MONOCYTES ABSOLUTE AUTO 1.29 K/mm3 (0.16-1.47); MONOCYTES PERCENT AUTO 4 % (4-13); Mean Corpuscular Volume 92 fL (80-100); NEUTROPHILS ABSOLUTE AUTO 18.45 K/mm3 (1.96-9.15); NEUTROPHILS PERCENT AUTO 63 % (41-73)
[2020-05-15 04:22] LABS: Albumin, Blood 2.2 g/dL (3.4-5.0); Anion Gap 14 mmol/L (6-16); Blood Urea Nitrogen 38 mg/dL (8-24); Bun/Creatinine Ratio 19.1 (12.0-20.0); CO2, Blood 24 mmol/L (21-32); Calcium, Blood 6.3 mg/dL (8.5-10.1); Chloride, Blood 83 mmol/L (98-108); Creatinine, Blood 1.99 mg/dL (0.60-1.20); Glomerular Filtration Rate 34 (60-); Glucose, Blood 411 mg/dL (70-99); Phosphorus, Blood 5.7 mg/dL (2.5-4.9); Potassium, Blood 5.1 mmol/L (3.5-5.5); Sodium, Blood 121 mmol/L (136-145); Troponin I 0.026 ng/mL (0.000-0.040)
[2020-05-15 04:31] LABS: BAND PERCENT MAN 2 % (0-8); BASOPHILS PERCENT MAN 0 % (0-2); EOSINOPHILS PERCENT MAN 0 % (0-6); LYMPHOCYTES ABSOLUTE MAN 10.77 K/mm3 (0.84-5.20); LYMPHOCYTES PERCENT MAN 37 % (21-46); METAMYELOCYTE ABSOLUTE MAN 0.58 K/mm3 (0.00-0.00); METAMYELOCYTE PERCENT MAN 2 % (0-0); MONOCYTES ABSOLUTE MAN 0.29 K/mm3 (0.16-1.47); MONOCYTES PERCENT MAN 1 % (4-13); MYELOCYTE ABSOLUTE MAN 0.58 K/mm3 (0.00-0.00); MYELOCYTE PERCENT MAN 2 % (0-0); NEUTROPHILS ABSOLUTE MAN 16.88 K/mm3 (1.96-9.15); SEG NEUTROPHILS PERCENT MAN 56 % (41-73); TOTAL CELLS COUNTED 100
[2020-05-15 04:49] LABS: PCO2 Arterial 39.1 mmHg (35-45); PO2 Arterial 50.8 mmHg (80-100); pH Blood Arterial 7.39 (7.35-7.45)
[2020-05-15 05:46] LABS: pH Blood Arterial 6.96 (7.35-7.45)
--- NOTE | 2020-05-15 05:50 | NUR ---
CALL TO MD/UPDATE DR. ALCANTAR UPDATED ON CONDITION AND NOTIFIED OF ABNORMAL LABS, CONTINUED DECREASE URINE OUTPUT, CONTINUED BLOOD IN URINE, DECREASED H+H, AND CHANGE IN VENT SETTINGS. NEW ORDERS RECEIVED AT THIS TIME.
--- NOTE | 2020-05-15 06:49 | NUR ---
SHIFT SUMMARY PT REMAINS INTUBATED- CHANGED FROM AC VENTILATION TO SPONTANEOUS WITH PS 8, PEEP 8 AT APPROXIMATELY 0330 D/T ASYNCHRONY WITH VENTILATOR. APPEARS TO BE MORE COMFORTABLE ON SPONTANEOUS. SEDATED WITH PROPOFOL BETWEEN 10-35MCG/KG/MIN- NOW AT 10MCG/KG/MIN. PT FOLLOWS SIMPLE COMMANDS AND NODS HEAD APPROPRIATELY. DENIES PAIN. LEVOPHED BETWEEN 8-11MCG/MIN TO KEEP MAP >65. NOW INFUSING AT 9MCG/MIN. VASOPRESSIN CONTINUES PER ORDER. BICARB GTT DECREASED TO 100CC/HR THIS AM. OG TO LIS WITH SCANT BROWN DRAINAGE. NAJERA PATENT AND DRAINING BLOODY URINE. NAJERA FLUSHED X 3 DURING SHIFT. SCDs TO BLE. LEFT FEMORAL CL PATENT, SITE CLEAR. PT TO RECEIVE 1UNIT PRBC THIS AM. WILL REPORT TO DAY SHIFT RN WHEN AVAILABLE.
--- NOTE | 2020-05-15 10:49 | NUR ---
CARE ASSUMED ASSESSMENT COMPLETED, PT INTUBATED, VENT ON SPONTANEOUS WITH PS 8, PEEP 8, FIO2 75%. FIO2 INCREASED TO 80% AFTER DESAT WITH REPOSITIONING, TOLERATING WELL. LS CLEAR ON R, COARSE ON L, RR 20-22, Vt 600'S, SPO2 LOW 90'S. HR 60'S, ACCELERATED JUNCTIONAL, ABD DISTENDED WITH HYPOACTIVE BT. NAJERA IN PLACE, URINE BLOODY WITH SMALL CLOTS PRESENT, PATENT AND DRAINING, BLOOD CONTINUES TO OOZE FROM MEATUS. DR. ALCANTAR IN TO SEE PATIENT, NEW ORDERS. PRBC'S INFUSING PER ORDERS, LASIX AT 5MG/HR AND TITRATING TO ACHIEVE URINE OUTPUT >150ML/HR, PROPOFOL INCREASED TO 20MCG FOR COMFORT, TITRATING LEVO DOWN, VASO AT 0.04, WILL STOP ABLE. AT BEDSIDE TO VISIT, UPDATED ON PT CONDITION. WILL INITIATE INSULIN GTT PER ORDERS.
--- NOTE | 2020-05-15 11:07 | NUR ---
UPDATE CBG AT 1100 IS 166, INSULIN GTT HELD, WILL RESUME REGULAR INSULIN SS, MEDIUM DOSE PER DR. ALCANTAR.
--- NOTE | 2020-05-15 12:21 | NUR ---
UPDATE PALLIATVE AND PASTORAL CARE AT BEDSIDE, SPOKE WITH PT AND ABOUT TREATMENT OPTIONS AND COMFORT MEASURES. DR. BARDALES AT BEDSIDE, REVIEWED TELE, SMALL P WAVES PRESENT, PT IN SINUS RHYTHM 60'S. CARDIOLOGY SIGNING OFF. PT REPOSITIONED, MEPILEX PLACED TO REDDENED COCCYX, SKIN INTACT, BLANCHEABLE. LASIX GTT INCREASED TO 10MG FOR 1 HOUR URINE OUTPUT OF 57ML. LEVO DECREASED TO 3MCG. REMAINS AT BEDSIDE.
--- NOTE | 2020-05-15 12:51 | NUR ---
PAL CARE INITIAL VISIT: Case conferenced with hospitalist, SANTOS and Regrader following pt prior to my visit. , María Elena, is at the bedside. Tone is maintaining eye contact, blinking, trying to nod and squeezing her hand and mine consistently in response to request or attempts to clarify orientation. He can consistently squeeze my hand for yes and be absent of squeeze for no. When asked if he is hurting, his answer by no squeeze is no. Both Regrader and I encouraged to explain to Tone the events of yesterday and explain to him why he is here in the hospital and on a vent now. Also, encouraged any conversation she felt she needed to have. Pt had a complete cardiopulmonary arrest in the ER yesterday, see 's notes for complete hx. He has hx of prostate CA, more recent Lung CA and underwent radiation for that this winter. Pt had a spinal biopsy due to increased pain and s/s that has found to be metastatic disease. Currently, pt has acute renal failure and multiple acute comorbidities in addition to cancers. Pt is a DNR. Per , she and have discussed attempting to give pt time/opportunity to be extubated in order to have time with family. [facility] will follow closely. and I are familiar with each other. 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 She has our card to contact us with any questions or desire to discuss goals of care, options for care going forward and symptom management. I described nonverbal indicators of pain, anxiety, agitation & distress for her to recognize and report if noted. Currently pt is clearly happy to have his at bedside. I am not noting nonverbal indicators of pain, anxiety or agitation/distress at this time. grateful that pt has become responsive and communicative. No further intervention at this time as I wanted to allow pt and to have some time. [facility] care to plan daily visits as schedule allows.
[2020-05-15] MEDS ORDERED: Percocet 5-3251 EACH PO (13:46)
--- NOTE | 2020-05-15 17:28 | NUR ---
Routine spiritual care note: , Jolene, was excited that Tone is responding to her today. She sees this as an answered prayer. Tone opened eyes and squeezed my hand when I spoke to him. Provided prayer at bedside. Jolene appears realistic and says she understands this may be God's way of allowing time for family to say goodbye. I will continue to suport pt and family.
--- NOTE | 2020-05-15 19:14 | NUR ---
END OF SHIFT PT RESTED WELL THIS AFTERNOON WITH PROPOFOL AT 20MCG, VSS, LEVO AT 1MCG, VASO REMAINS OFF. PT REMAINS RESPONSIVE, FOLLOWS SIMPLE COMMANDS. SEDATION NEVER SHUT COMPLETELY OFF THIS SHIFT PT WAS ALERT AND RESPONSIVE THIS MORNING ON 10MCG PROPOFOL. NEURO STATUS UNCHANGED THIS SHIFT. LS REMAIN COARSE T/O, SPO2 90-93% ON FIO2 75%, VENT REMAINS SPONT MODE PS 8, PEEP 8, PT TOLERATING WELL. HR 60'S-70 SINUS, NO BRADYCARDIA THIS SHIFT. ABD REMAINS DISTENDED AND FIRM, BT PRESENT, NO BM THIS SHIFT. NAJERA DRAINING PINK URINE AT THIS TIME WITH SMALL RED SEDIMENT, URINE HAS LIGHTENED CONSIDERABLY THIS SHIFT, OUTPUT 577ML WITH LASIX GTT AT 35MG/HR AT THIS TIME, NO BLEEDING FROM MEATUS THIS AFTERNOON. EDEMA REMAINS UNCHANGED FROM THIS MORNING, PT REPOSITIONED FREQUENTLY THIS SHIFT AND EXTREMS ELEVATED. ZOSYN AND D5 WITH BICARB CONTINUED PER ORDERS. SODIUM LEVEL LOW, WILL RECHECK AT [address] ALCANTAR. CONSULTED WITH DR. ALCANTAR REGARDING HGB AND LASIX WITH RENAL DYSFUNCTION, WILL RECHECK LABS IN AM AND CONTINUE LASIX UNTIL TOMORROW THEN REASSESS. PALLIATIVE CARE AND PASTORAL CARE IN TO SPEAK WITH PT'S TODAY AT LENGTH. REPORT TO ONCOMING SHIFT.
--- NOTE | 2020-05-15 20:00 | NUR ---
INITAL SHIFT ASSESSMENT PT IS INTUBATED AND SEDATED AT THIS TIME. PROPOFOL GTT AT 20MCG. WILL CON'T TO TITRATE NEEDED T/O SHIFT. PT DOES RESPOND TO TOUCH STIMULI AND ADJUSTING PILLOWS. HE FURROWS HIS BROW WITH THIS AND WILL SHAKE HIS HEAD YES OR NO TO SIMPLE QUESTIONS. HE IS ORIENTED TO HIMSELF AT THIS TIME. VENT IS ON SPONTANEOUS SETTINGS SEE RT NOTES. PT IS TOLERATING THIS WELL. BILATERAL SOFT WRIST RESTRAINTS IN PLACE WITH NO ISSUES WITH SKIN. ALL EXTREMITIES ELVATED AT THIS TIME ON PILLOWS. VITALS ARE STABLE. LEVOPHED GTT IS RUNNING AT 1MCG PLACING THIS ON STANDBY R/T MAP OVER 60. WILL RE-START IF NEEDED. SEE FLOW SHEET FOR ADJUSTMENTS TO THE LASIX GTT THAT IS CURRENTLY RUNNING AT 35ML. BLOODY URINE NOTED IN THE NAJERA AT THIS TIME. PT DOES HAVE A SWOLLEN PENIS AND SCROTUM NOTED. CENTRAL LINE TO LEFT GROIN IS PATENT WITH CDI DRESSING. NO SWELLING NOTED OR BRUISING. OG TUBE IN PLACE TO LOW INT SUCTION AND RETURN APPEARS TO BE BROWN/GREEN BILE, BUT VERY MINIMAL. ORAL CARE WAS DONE AT THIS TIME WELL. PT TOLERATED THIS WELL. OVERALL PT IS STABLE AT THIS TIME. WILL CON'T TO MONITOR AND KEEP PT SAFE T/O SHIFT.
[2020-05-15 20:46] LABS: Calcium, Blood 6.6 mg/dL (8.5-10.1); Creatinine, Blood 2.41 mg/dL (0.60-1.20); Potassium, Blood 5.6 mmol/L (3.5-5.5)
--- NOTE | 2020-05-16 01:00 | NUR ---
SHIFT UPDATE PT CON'T TO BE STABLE WITH NO ACUTE CHANGES. HIS TEMP HAS DECREASED TO NORMAL LIMITS. PT CON'T TO HAVE GOOD URINE OUTPUT WITH THE LASIX GTT AT 40MG/HR. NO CHANGE IN THE QUALITY OF URINE. STILL RED WITH SOME CLOTTS. WHEN TURNING PT HE IS ALERT AND SHAKES HEAD YES AND NO TO QUESTIONS. LEVOPHED GTT WAS RESTARTED R/T SOFT BP. GTT AT 2MCG AND HOLDING MAP OVER 60. WILL CON'T TO MONITOR AND KEEP PT SAFE. ROHAN WRIST RESTRAINTS CON'T TO BE IN PLACE.
[2020-05-16 03:25] LABS: Hematocrit 23.9 % (37.0-53.0); Mean Corpuscular HGB 29.3 pg (26.0-34.0); Mean Corpuscular HGB Conc 33.5 g/dL (31.5-36.5); Mean Platelet Volume 9.6 fL (9.1-12.4); NRBC ABSOLUTE 0.09 K/mm3 (0.00-0.02); NRBC Auto 0.3 /100 WBC (0.0-0.2); Platelet Count 192 K/mm3 (150-400); RDW Coefficient Variation 14.3 % (11.7-14.2); RDW Standard Deviation 45.1 fL (35.1-46.3); Red Blood Cell Count 2.73 M/mm3 (4.30-5.90); White Blood Cell Count 27.04 K/mm3 (4.00-11.30)
[2020-05-16 03:26] LABS: Mean Corpuscular Volume 88 fL (80-100)
[2020-05-16 03:43] LABS: Albumin, Blood 1.8 g/dL (3.4-5.0); Anion Gap 12 mmol/L (6-16); Blood Urea Nitrogen 45 mg/dL (8-24); Bun/Creatinine Ratio 17.7 (12.0-20.0); CO2, Blood 32 mmol/L (21-32); Calcium, Blood 6.4 mg/dL (8.5-10.1); Chloride, Blood 78 mmol/L (98-108); Creatinine, Blood 2.54 mg/dL (0.60-1.20); Glomerular Filtration Rate 26 (60-); Glucose, Blood 166 mg/dL (70-99); Phosphorus, Blood 6.3 mg/dL (2.5-4.9); Potassium, Blood 5.2 mmol/L (3.5-5.5); Sodium, Blood 122 mmol/L (136-145)
[2020-05-16 03:48] LABS: BAND PERCENT MAN 10 % (0-8); BASOPHILS PERCENT MAN 0 % (0-2); EOSINOPHILS PERCENT MAN 0 % (0-6); LYMPHOCYTES ABSOLUTE MAN 7.84 K/mm3 (0.84-5.20); LYMPHOCYTES PERCENT MAN 29 % (21-46); MONOCYTES ABSOLUTE MAN 1.35 K/mm3 (0.16-1.47); MONOCYTES PERCENT MAN 5 % (4-13); NEUTROPHILS ABSOLUTE MAN 17.84 K/mm3 (1.96-9.15); SEG NEUTROPHILS PERCENT MAN 56 % (41-73); TOTAL CELLS COUNTED 100
--- NOTE | 2020-05-16 05:55 | NUR ---
SHIFT SUMMARY PT CON'T TO HAVE NO ACUTE CHANGES. VITALS HAVE BEEN STABLE T/O SHIFT. LEVOPHED GTT CON'T TO HOLD MAP OVER 60 AT 3MCG. LASIX GTT AT 40MCG/HR CON'T TO HOLD URINE OUTPUT AT 150CC AN HOUR. PROPOFOL GTT AT 25MCG KEEPING PT LIGHTLY SEDATED. PT IS ON SPONTANEOUS VENT SETTINGS WITH FIO2 AT 75% PEEP OF 8. PT DOES HAVE VERY THICK SECRETIONS WITH INLINE SUCTION. NO OG OUTPUT. CENTRAL LINE CON'T TO BE PATENT. SOFT BILATERAL WRIST RESTRAINTS IN PLACE WELL WITH NO ISSUES WITH SKIN. WILL CON'T TO MONITOR AND KEEP PT SAFE TILL REPORT TO ONCOMING RN.
--- NOTE | 2020-05-16 08:36 | NUR ---
CARE ASSUMED ASSESSMENT COMPLETED. VENT SETTINGS CHANGED AT 0700 BY RT TO AC 18, Vt 450, FIO2 75%, PEEP 10, RT REPORTS PT WAS TIRING ON SPONTANEOUS MODE. PT APPEARS RESTFUL AT THIS TIME, PROPOFOL AT 30MCG/KG/MIN, LEVO 4MCG/HR, LASIX 40MG/HR. PT RESPONDS TO PAIN, IS NOT TRACKING OR FOLLOWING DIRECTIONS WITH INCREASE IN PROPOFOL, GROSS MOVEMENT TO ALL EXTREMS. LS MOSTLY CLEAR BUT COARSE IN L UPPER LOBE DESPITE ETT SUCTIONING OF SMALL AMOUNT OF BROWN SPUTUM. HR 90'S SIT, MAP 60'S WITH LEVO. ABD REMAINS DISTENDED WITH HYPOACTIVE BT, SCANT OUTPUT FROM OGT. NAJERA PATENT, DRAINING RED URINE WITH SMALL CLOTS, OUTPUT GOOD WITH LASIX. EDEMA NOTED TO SCLERA, SCROTUM, PENIS, BILAT HANDS, BILAT FEET. PT REPOSITIONED, ORAL CARE COMPLETED, CL DRESSING CHANGED. MEPILEX TO COCCYX FOR PROTECTION, SCDS ON BLE'S.
--- NOTE | 2020-05-16 10:48 | NUR ---
UPDATE 'S MADYSON AND KATHARINE IN TO ASSESS PATIENT, NO NEW ORDERS AT THIS TIME, WILL CONTINUE LASIX AND LEVO GTT'S TO EFFECT. TITRATING FIO2 DOWN ABLE, PT BEGAN ALARMING PEAK PRESSURES >30 AROUND 1000, RT NOTIFIED, PT APPEARS TO BE BITING ON ETT. DISCUSSED PLAN WITH RT, VENT CHANGED BACK TO SPONTANEOUS MODE PS 8, PEEP 10, FIO2 60%, PT TOLERATING WELL. SPO2 >90%, RR 17, Vt 400'S, PEAK PRESSURE 18, WILL CONTINUE TO TITRATE FIO2 DOWN ABLE, PLAN TO DECREASE PEEP IF PT TOLERATES FIO2 <40%. URINE OUTPUT REMAINS >150ML/HR WITH LASIX GTT AT 40MG/HR, WILL TITRATE DOWN IF ABLE.
--- NOTE | 2020-05-16 14:09 | NUR ---
UPDATE DR. ALCANTAR IN, SPOKE WITH WHO IS AT BEDSIDE REGARDING PLAN OF CARE AND PROGNOSIS, VERBALIZES UNDERSTANDING AND STATES SHE WOULD LIKE TO MOVE TOWARDS END OF LIFE CARE AFTER FAMILY IS ABLE TO COME TO TOWN TO VISIT. TF AND BOWEL CARE INITIATED PER ORDERS, VENOUS DUPLEX OF BLE COMPLETED, NEGATIVE PER REPORT OF US TECH. VSS, WILL CONTINUE TO TITRATE DRIPS ABLE. URINE OUTPUT GOOD THIS SHIFT.
--- NOTE | 2020-05-16 18:17 | NUR ---
SEDATION VACATION/END OF SHIFT SEDATION VACATION COMPLETED AROUND 1630, PT WOKE, OPENED EYES TO VOICE, TRACKING, FOLLOWED COMMANDS, NODDED YES/NO APPROPRIATELY, INDICATED ABD PAIN WHEN QUESTIONED. FENTANYL ORDER RECEIVED, ADMINISTERED. PT RESEDATED WITH PROPOFOL 30MCG. PT RESTED THIS AFTERNOON, LS CLEAR, ETT SECRETIONS APPEAR TO BE SLOWING THIS EVENING, REMAIN THICK AND BROWN. VENT REMAINS ON SPONTANEOUS MODE PS 8, PEEP 10, FIO2 TITRATED DOWN TO 40%, THEN PT HAD O2 DESAT WITH REPOSITIONING, FIO2 AT 50% AT THIS TIME WITH SPO2 88%. HR NSR 90'S, MAPS 60'S-70 WITH LEVO AT 2MCG, URINE OUTPUT 125-150ML/HR WITH LASIX AT 25MG/HR, URINE REMAINS RED WITH SMALL CLOTS, TRANSLUCENT. PT REMAINS EDEMATOUS IN ALL EXTREMS, SCLERA, PENIS, AND SCROTUM, GENITALS AND EXTREMS ELEVATED. ABD REMAINS DISTENDED AND FIRM WITH HYPOACTIVE BT, PT APPEARS TO BE TOLERATING TF WELL, NO S/SX ASPIRATION, NO RESIDUAL WHEN ASSESSED. PIVOT 1.5 AT 10ML/HR WITH 30ML WATER FLUSH Q4H ORDERED. OGT WAS RETRACTED 5CM EARLIER THIS SHIFT D/T CXR REPORTING OGT BEING COILED IN UPPER PART OF STOMACH AND BEING UNABLE TO ASPIRATE STOMACH CONTENTS WITH SYRINGE, ATTEMPTED TO PULL RESIDUAL WITHOUT SUCCESS, OGT REPLACED AT ORIGINAL DEPTH, FLUSHES WITHOUT DIFFICULTY. MEPILEX TO COCCYX CHANGED, SACRAL REDNESS HAS IMPROVED, REMAINS INTACT. REPORT TO ONCOMING SHIFT.
--- NOTE | 2020-05-16 18:35 | NUR ---
Routine spiritual care note: Provided prayer and emotional affirmation to spouse, Jolene. She appears to understand Tone's poor prognosis. We prayed together for Tone and her family. [employer] Cutter Truer Operator services will remain available.
--- NOTE | 2020-05-16 19:32 | NUR ---
INITAL SHIFT ASSESSMENT PT IS INTUBATED AND SEDATED WITH PROPOFOL AT 30MCG. PT IS ABLE TO SHAKE HEAD YES OR NO TO QUESTIONS. HE SLIGHTLY OPENS HIS EYES WITH ORAL CARE. WILL SQUEEZE THIS RN'S HANDS. SOFT BILATERAL WRIST RESTRAITNS IN PLACE. VENT IS ON SPONTANEOUS. SEE RT NOTES FOR VENT SETTING CHANGES. PT HAS OG TUBE IN PLACE WITH FEEDINGS BEING TRICKLED IN. NO RESIDUALS AT THIS TIME. ABD IS FIRM AND ROUND. TENDER TO MODERATE PALPITATION. PT HAS NAJERA CATH IN PLACE WITH SOME RED CLOTTS PRESENT. LASIX GTT ON AT 25MG/HR TO KEEP OUTPUT OVER 150ML/HR. WILL TITRATE NEEDED. LEVOPHED GTT ALSO ON AT 2MG TO MAINTAIN MAP OVER 60. WILL TITIRATE NEEDED T/O SHIFT. CENTRAL LINE TO LEFT GROIN IS CDI. PT DOES HAVE OOZING UNDER DRESSING R/T INCREASING DEPENDENT EDEMA. EXTREMITIES ARE ELEVATED ON PILLOWS. OVERALL PT IS STABLE AT THIS TIME. WILL CON'T TO MONITOR AND KEEP HIM SAFE T/O SHIFT.
--- NOTE | 2020-05-16 23:45 | NUR ---
SHIFT UPDATE PT CON'T TO BE STABLE WITH NO CHANGES. NO CHANGES TO GTT RATES. GOOD URINE OUTPUT. PT CON'T TO HAVE A FAIR AMOUNT OF SWELLING/EDEMA TO SCROTUM WELL PENIS. SLING OUT OF A PILLOW CASE IS IN PLACE. NO CHANGES TO VENT SETTINGS PT APPEARS TO BE COMFORTABLE ON SPONTANEOUS. WILL CON'T TO MONITOR AND KEEP PT SAFE T/O SHIFT.
[2020-05-17 03:11] LABS: Hematocrit 24.7 % (37.0-53.0); Hemoglobin 8.1 g/dL (13.5-17.5); Mean Corpuscular HGB 28.5 pg (26.0-34.0); Mean Corpuscular HGB Conc 32.8 g/dL (31.5-36.5); Mean Corpuscular Volume 87 fL (80-100); Mean Platelet Volume 9.5 fL (9.1-12.4); NRBC ABSOLUTE 0.09 K/mm3 (0.00-0.02); NRBC Auto 0.4 /100 WBC (0.0-0.2); Platelet Count 186 K/mm3 (150-400); RDW Coefficient Variation 14.1 % (11.7-14.2); RDW Standard Deviation 44.1 fL (35.1-46.3); Red Blood Cell Count 2.84 M/mm3 (4.30-5.90)
[2020-05-17 03:28] LABS: BAND PERCENT MAN 6 % (0-8); BASOPHILS PERCENT MAN 0 % (0-2); EOSINOPHILS PERCENT MAN 0 % (0-6); LYMPHOCYTES ABSOLUTE MAN 6.35 K/mm3 (0.84-5.20); LYMPHOCYTES PERCENT MAN 25 % (21-46); METAMYELOCYTE ABSOLUTE MAN 0.25 K/mm3 (0.00-0.00); METAMYELOCYTE PERCENT MAN 1 % (0-0); MONOCYTES ABSOLUTE MAN 1.27 K/mm3 (0.16-1.47); MONOCYTES PERCENT MAN 5 % (4-13); NEUTROPHILS ABSOLUTE MAN 17.52 K/mm3 (1.96-9.15); SEG NEUTROPHILS PERCENT MAN 63 % (41-73); TOTAL CELLS COUNTED 100
[2020-05-17 03:29] LABS: Magnesium, Blood 1.9 mg/dL (1.6-2.4)
[2020-05-17 04:32] LABS: Albumin, Blood 1.5 g/dL (3.4-5.0); Anion Gap 10 mmol/L (6-16); Blood Urea Nitrogen 47 mg/dL (8-24); Bun/Creatinine Ratio 16.8 (12.0-20.0); CO2, Blood 42 mmol/L (21-32); Calcium, Blood 5.8 mg/dL (8.5-10.1); Chloride, Blood 70 mmol/L (98-108); Creatinine, Blood 2.79 mg/dL (0.60-1.20); Glomerular Filtration Rate 23 (60-); Glucose, Blood 192 mg/dL (70-99); Phosphorus, Blood 6.5 mg/dL (2.5-4.9); Potassium, Blood 3.7 mmol/L (3.5-5.5); Sodium, Blood 122 mmol/L (136-145)
--- NOTE | 2020-05-17 05:28 | NUR ---
SHIFT SUMMARY PT HAS HAD NO ACUTE CHANGES T/O SHIFT. HE REMAINS STABLE. SEE ICU FLOW SHEET FOR CHANGES TO GTT RATES T/O SHIFT. PT CON'T TO BE ON SPONTANEOUS VENT SETTINGS AND TOLERATING WELL. NO CHANGES WITH MENTATION CON'T TO SHAKE HEAD YES OR NO TO QUESTIONS. WILL CON'T TO MONITOR PT AND KEEP SAFE TILL REPORT TO ONCOMING RN.
--- NOTE | 2020-05-17 07:31 | NUR ---
ASSUMED CARE REPORT FROM KYRA GRACE. PATIENT INTUBATED/VENTILATED ON SPONT PS 8, PEEP 10 FIO2 50%. LEVOPHED GTT AT 2 MCG/MIN. PROPOFOL 30 MCG/KG/HR. LASIX GTT.
--- NOTE | 2020-05-17 09:37 | NUR ---
MD VISIT DR. KEENE IN. NO NEW ORDERS
--- NOTE | 2020-05-17 10:06 | NUR ---
UPDATED. SHE WANTS TO CONFIRM WITH PATIENT WHEN SHE COMES IN, BUT WOULD LIKE TO MAKE PATIENT "PALLIATIVE CARE" THIS WEEKEND.
--- NOTE | 2020-05-17 10:30 | NUR ---
MD VISIT DR. LYONS IN. ORDERS TO STOP LASIX GTT AND BICARB GTT. NOTIFY WHEN ARRIVES
--- NOTE | 2020-05-17 10:48 | NUR ---
LEVOPHED TO 1 MCG/MIN. TF TO 35 ML/HR
--- NOTE | 2020-05-17 11:57 | NUR ---
PROPOFOL OFF FOR VISIT WITH
--- NOTE | 2020-05-17 12:25 | NUR ---
AT BEDSIDE, ASKED TO HAVE PT EXTUBATED. COMFORT CARE ORDERS BY DR. LYONS. EXTUBATED 1210. NC 4L
--- NOTE | 2020-05-17 12:31 | NUR ---
Spiritual care visit conducted. Upon receiving a call from patient's RN Mirna requesting a visit from spiritual care, I visit patient. Patient's spouse, Leslie is bedside. I provide prayer for them both. After the prayer, Leslie and patient verbalize appreciation. Leslie, then, tells me about patient's decision to move to comfort care and to have"the tube" removed. I listen empathically and normalize thier experience. I will remain available to patient and family.
--- NOTE | 2020-05-17 13:47 | NUR ---
COMOFRT CARE VISIT: Reviewed EMR and order changes, case conferenced with pt's bedside RN prior to my visit. , María Elena at bedside. She looks exhausted but not anxious. Pt is sleeping but wakes periodically to voice and touch t/o my visit. María Elena expressed gratitude that her made the decision to be extubated for himself and that she was having a very difficult time with making that decision for him. She said, "I was a wreck". They are communicating with loving looks, gestures and very few words from pt due to exhaustion, dyspnea and weakness. Upper airway and chest rattle from secretions heard and felt thru chest wall. ICU staff entered comfort care orders and all medications that he may need for dyspnea, pain, anxiety, agitation and secretions are ordered per eMAR. Towards the end of my visit I noted pt grimacing, frowning, moving head side to side and he noded yes, and placed his hand on his abdomen, when asked if he was hurting. This was reported to nursing who medicated him with MS 4mg IV per eMar. Much time spent disussing s/s with María Elena that she may begin to see indicating pt is progressing in the dying process. María Elena asks if he will before their daughter visitst tomorrow and I told her I could not say but that it was possible. Pt is not wanting any other visitors at this time. María Elena states he is a very proud man and does not especially want other family members "to see him like this". Time spent supporting and listening as pt's talks about her and family. I encouraged reminiscing at the bedside and quiet, gemtle conversation per pt's tolerance. I encouraged María Elena to get the rest, fluids, nutrition that she needs also and told her we would bring what she needed to the room as needed, just to ask. Instructed María Elena, that PC RN, Jean would be here and check on them tomorrow. appreciative of staff's care and quality control auditor visits too. Both she and Tone appear peaceful and to be appropriately grieving pt's . encouraged to let staff know if she is seeing nonverbal indicators or if pt reports any pain, anxiety, distress or agitation. María Elena verbalizes understanding.
--- NOTE | 2020-05-17 16:06 | NUR ---
PATIENT [id number]. AT BEDSIDE.
== END 2020-05-17 16:35 | DRG 296 ==
LOC: ER 05:37 → ICUW 07:15 → PCU 05-15 18:00 → ICUW 05-15 18:22
PROVIDERS: Emergency Medicine; Internal Medicine Critical Care Medicine; ADMIT Family Medicine
PROC: 0BH18EZ Insertion of Endotracheal Airway into Trachea, Via Natural or Artificial Opening Endoscopic (ICD-10-PCS; principal; 2020-05-14)
PROC: 5A12012 Performance of Cardiac Output, Single, Manual (ICD-10-PCS; 2020-05-14)
PROC: 5A1945Z Respiratory Ventilation, 24-96 Consecutive Hours (ICD-10-PCS; 2020-05-14)
PROC: 3E033XZ Introduction of Vasopressor into Peripheral Vein, Percutaneous Approach (ICD-10-PCS; 2020-05-14)
PROC: 30233N1 Transfusion of Nonautologous Red Blood Cells into Peripheral Vein, Percutaneous Approach (ICD-10-PCS; 2020-05-15)
DX: I46.9 Cardiac arrest, cause unspecified (principal); J96.01 Acute respiratory failure with hypoxia; J96.02 Acute respiratory failure with hypercapnia; J69.0 Pneumonitis due to inhalation of food and vomit; C91.10 Chronic lymphocytic leukemia of B-cell type not having achieved remission; E87.2 Acidosis; N17.9 Acute kidney failure, unspecified; C79.51 Secondary malignant neoplasm of bone; C34.90 Malignant neoplasm of unspecified part of unspecified bronchus or lung; N39.0 Urinary tract infection, site not specified; Z51.5 Encounter for palliative care; E11.9 Type 2 diabetes mellitus without complications; M10.9 Gout, unspecified; I10 Essential (primary) hypertension; M19.90 Unspecified osteoarthritis, unspecified site; Z79.84 Long term (current) use of oral hypoglycemic drugs; Z87.891 Personal history of nicotine dependence; E87.5 Hyperkalemia; R57.1 Hypovolemic shock; I48.91 Unspecified atrial fibrillation; Z85.46 Personal history of malignant neoplasm of prostate; E78.00 Pure hypercholesterolemia, unspecified; Z66 Do not resuscitate; Z20.828 Contact with and (suspected) exposure to other viral communicable diseases; T83.098A Other mechanical complication of other urinary catheter, initial encounter; R31.9 Hematuria, unspecified; K21.9 Gastro-esophageal reflux disease without esophagitis; B95.2 Enterococcus as the cause of diseases classified elsewhere
CPT/HCPCS: 0099U; 31500; 31720; 36415; 36430; 36556; 36600; 51702; 70450; 71045; 74176; 76705; 76857; 80047; 80048; 80053; 80069; 81001; 82330; 82607; 82728; 82746; 82803; 82947; 83540; 83550; 83605; 83690; 83735; 83880; 84145; 84484; 85014; 85025; 86850; 86900; 86901; 86923; 87040; 87077; 87086; 87186; 92950; 92953; 93005; 93010; 93306; 93970; 94002; 94003; 94640; 96365-59; 96366-59; 96368; 96375-59; 96376-59; 99291-25; 99292; C1751; C9113; J0171; J0461; J0610; J1170; J1644; J1815; J1940; J2270; J2543; J2704; J3010; J7030; J7060; J7070; J7120; P9016; P9046; U0002